=== PATIENT | female | born 1955 | race Caucasian/White ===

== ENCOUNTER 2018-02-06 18:00 | Emergency (ER) | payer MEDICAID ==
[~2018-02-06] VITALS: Ht 144.8 cm; Wt 96.3 kg
[2018-02-06] MEDS ORDERED: acetaminophen 325mg tablet PO ONE (18:50)
[2018-02-06] MEDS ORDERED: ketorolac trometh inj. 60 MG/2 ML VIAL IM ONE (19:55)
[2018-02-06] MEDS ORDERED: rivaroxaban 10mg tablet PO ONE (19:55)
[2018-02-06] MEDS ORDERED: RIVA10TA PO (19:57)
[2018-02-06 20:00] VITALS: BP 154/92
[2018-02-06] MEDS ORDERED: TRAM50TA2 PO (20:03)
== END 2018-02-06 20:25 | disposition home or self-care (01) ==
LOC: ER 18:00
DX: I87.8 Other specified disorders of veins (principal); M25.551 Pain in right hip
CPT/HCPCS: 93971; 96372; 99284; J1885